=== PATIENT | female | born 2000 | race American Indian/Alaskan Native ===

== ENCOUNTER 2019-06-08 01:37 | Emergency (ER) | payer MEDICAID ==
[2019-06-08 01:43] VITALS: BP 125/83
[2019-06-08] MEDS ORDERED: IPRATROPIUM/ALBUTEROL SULFATE 3 ML AMPUL.NEB IH ONE (01:51)
--- NOTE | 2019-06-08 02:10 | XRay Report ---
CHEST 2 VIEWS INDICATION / CLINICAL INFORMATION: cough. COMPARISON: None available. FINDINGS: SUPPORT DEVICES: None. HEART / MEDIASTINUM: No significant abnormality. LUNGS / PLEURA: No significant pulmonary or pleural abnormality. No pneumothorax. ADDITIONAL FINDINGS: No significant additional findings. IMPRESSION: 1. No significant abnormality. Signer Name: Hoa Pelayo MD Signed: 06/08/2019 2:06 AM Workstation Name: [id number]
[2019-06-08] MEDS ORDERED: DEXAMETHASONE 4 MG TAB PO ONE (02:21)
--- NOTE | 2019-06-08 02:35 | Emergency Department Report ---
HPI - General Chief Complaint: Adult Asthma Time Seen by Provider: 06/08/19 02:20 - HPI HPI: 18-year-old female presents to the emergency department with a one-week history of a mixed dry and productive cough, sore throat, and both head and chest congestion. She denies any fever. She is use some type of VapoRub and NyQuil for her symptoms without any relief. No recent travel or sick contacts at home. She has a past medical history of asthma. She has a primary care physician but has not seen them regarding her symptoms. ED Past Medical Hx - Past Medical History Previous Medical History?: Yes Hx Asthma: Yes Additional medical history: Morbid Obesity - Surgical History Past Surgical History?: No - Social History Smoking Status: Never Smoker Substance Use Type: None - Medications Home Medications: Home Medications Medication Instructions Recorded Confirmed Last Taken Type ALBUTEROL Inhaler (OR & NICU) 2 puff IH QID PRN #8.5 gram 06/08/19 Unknown Rx [ProAir HFA Inhaler] Benzonatate [Tessalon Perles] 100 mg PO Q8HR PRN #20 capsule 06/08/19 Unknown Rx Fluticasone [Flonase] 1 spray NS QDAY #1 bottle 06/08/19 Unknown Rx ED Review of Systems ROS: Stated complaint: CHEST PAIN, SORE THROAT, COUGH Other details as noted in HPI Comment: All other systems reviewed and negative Constitutional: denies: chills, fever Eyes: denies: eye pain, vision change ENT: throat pain, congestion. denies: ear pain Respiratory: cough, wheezing Cardiovascular: denies: palpitations, edema Musculoskeletal: denies: back pain, arthralgia Neurological: denies: headache, weakness Physical Exam - Physical Exam Vital Signs: Vital Signs 06/08/19 01:42 Temperature 98.3 F Pulse Rate 83 Respiratory 20 Rate Blood Pressure 125/83 O2 Sat by Pulse 95 Oximetry Physical Exam: GENERAL: The patient is well-developed well-nourished. HENT: Normocephalic. Atraumatic. Patient has moist mucous membranes. There is some tonsillar hypertrophy but no erythema or exudates. No drooling or tr ismus. There is boggy nasal mucosa with audible nasal congestion. EYES: Extraocular motions are intact. Pupils equal reactive to light bilaterally. NECK: Supple. Trachea is midline. CHEST/LUNGS: Mild expiratory wheezing. No tachypnea or accessory muscle use. A productive sounding cough heard during examination. There is no respiratory distress noted. HEART/CARDIOVASCULAR: Regular. There is no tachycardia. There is no murmur. ABDOMEN: Abdomen is soft, nontender. Patient has normal bowel sounds. Obese habitus. SKIN: Skin is warm and dry. NEURO: The patient is awake, alert, and oriented. The patient is cooperative. The patient has no focal neurologic deficits. Normal speech. MUSCULOSKELETAL: There is no tenderness or deformity. There is no evidence of acute injury. ED Course Vital Signs 06/08/19 01:42 Temperature 98.3 F Pulse Rate 83 Respiratory 20 Rate Blood Pressure 125/83 O2 Sat by Pulse 95 Oximetry ED Medical Decision Making - Radiology Data Radiology results: image reviewed interpreted by me: Chest x-ray does not show any acute process. There are no pleural effusions, obvious pneumonia and there is no pneumothorax. - Medical Decision Making This patient presents with a one-week history of a mixed dry and productive cough, sore throat and both head and chest congestion. On examination she has obvious nasal congestion, a productive cough without signs of any respiratory distress and some mild expiratory wheezing. She was given a dose of Decadron and a DuoNeb breathing treatment. Chest x-ray did not show any pneumonia, pleural effusions, pneumothorax, focal consolidation, or any other acute process. She was negative on rapid strep test. Vital signs stable throughout her ED course including being afebrile. Patient most likely has a upper respiratory infection. She'll be discharged home to follow-up with a primary care physician. She'll be given a prescription for Tessalon Perles, albuterol and Flonase nasal spray. Instructed to return to the ER with any worsening of her symptoms or any acute distress. - Differential Diagnosis asthma, viral URI, pneumonia, bronchitis Critical Care Time: No Critical care attestation.: If time is entered above; I have spent that time in minutes in the direct care of this critically ill patient, excluding procedure time. ED Disposition Clinical Impression: Upper respiratory infection Qualifiers: URI type: unspecified viral URI Qualified Code(s): J06.9 - Acute upper respiratory infection, unspecified Disposition: DC- TO HOME OR SELFCARE Is pt being admited?: No Condition: Stable Instructions: Upper Respiratory Infection (ED) Additional Instructions: Please follow-up with your primary care physician in the next few days. Return to the emergency Department with any worsening of your symptoms or any acute distress. Prescriptions: Fluticasone [Flonase] 1 spray NS QDAY #1 bottle ALBUTEROL Inhaler (OR & NICU) [ProAir HFA Inhaler] 2 puff IH QID PRN #8.5 gram PRN Reason: Shortness Of Breath Benzonatate [Tessalon Perles] 100 mg PO Q8HR PRN #20 capsule PRN Reason: Cough Referrals: Primary Care Physician, Your [Other] - 2-3 Days Time of Disposition: 03:04
== END 2019-06-08 03:10 | disposition home or self-care (01) ==
LOC: ED 01:37
DX: J06.9 Acute upper respiratory infection, unspecified (principal); J45.909 Unspecified asthma, uncomplicated; E66.01 Morbid (severe) obesity due to excess calories; Z68.42 Body mass index [BMI] 45.0-49.9, adult; Z79.899 Other long term (current) drug therapy
CPT/HCPCS: 71046; 87116; 87430; 94640; 99284; J8540